=== PATIENT | male | born 1955 | race Caucasian/White ===

== ENCOUNTER 2016-07-17 19:18 | Observation (INO) | payer OTHER ==
[~2016-07-17] VITALS: Ht 172.7 cm; Wt 132.0 kg
--- NOTE | 2016-07-17 19:40 | NUR ---
PT TO ED C/O UPPER ABD PAIN THAT STARTED RUQ AND THAN MOVED ACROSS UPPER ABDOMEN SINCE SUNDAY NIGHT. DID HAVE SOME ETOH THAT EVENING, COULDN'T SLEEP.
--- NOTE | 2016-07-17 19:46 | ED GI/GU/ABDOMINAL COMPLAINT ---
History of Present Illness General Chief Complaint: Abdominal Pain/Flank Pain Stated Complaint: UPPER ABD PAIN Source: patient Exam Limitations: no limitations Vital Signs & Intake/Output Vital Signs & Intake/Output Vital Signs Date Time Temp Pulse Resp B/P Pulse O2 O2 Flow FiO2 Ox Delivery Rate 07/18 0004 98.8 73 18 198/94 98 Room Air 07/17 2320 100 Room Air 07/17 1937 98.6 69 20 189/82 96 Room Air ED Intake and Output 07/18 0000 07/17 1200 Intake Total Output Total Balance Patient 291 lb Weight Allergies Coded Allergies: No Known Drug Allergies (NKDA 07/17/16) Reconcile Medications No Known Home Medications Triage Note: PT TO ED C/O UPPER ABD PAIN THAT STARTED RUQ AND THAN MOVED ACROSS UPPER ABDOMEN SINCE SUNDAY NIGHT. DID HAVE SOME ETOH THAT EVENING, COULDN'T SLEEP. Triage Nurses Notes Reviewed? yes Onset: Gradual Duration: constant Timing: recent history Quality/Severity: mild Severity Numbers: 3 Location: epigastric, right upper quadrant Radiation: no radiation Activities at Onset: eating Prior Abdominal Problems: none HPI: Patient is a 61-year-old male with an unremarkable past Ajay who presents emergent thing that on Sunday morning at approximately 2 AM after eating a buffet dinner he had a gradual onset of epigastric pain and right upper quadrant pain. He states that symptoms have been mild in nature and persistent. Patient initially had indigestion and tried to cough the "gas bubble out" where he had 2 minimal episodes of nonbloody nonbilious emesis. Last bowel movement was that evening no blood no melena noted. Patient states that he has only been on clear liquids makes his symptoms worse. Denies any fevers, chills, chest pain and arm pain jaw pain cough shortness of breath or hemoptysis. (MANDY CAMARILLO) Past History Travel History Traveled to [place] past 21 day No Medical History Any Pertinent Medical History? see below for history Psychiatric: anxiety Surgical History Surgical History: non-contributory Psychosocial History What is your primary language Greenlandic Tobacco Use: Never used ETOH Use: occasional use Illicit Drug Use: denies illicit drug use Family History Hx Contributory? No (MANDY CAMARILLO) Review of Systems Review of Systems Constitutional: Reports: no symptoms. EENTM: Reports: no symptoms. Respiratory: Reports: no symptoms. Cardiovascular: Reports: no symptoms. GI: Reports: see HPI, abdominal pain. Genitourinary: Reports: no symptoms. Musculoskeletal: Reports: no symptoms. Skin: Reports: no symptoms. Neurological/Psychological: Reports: no symptoms. Hematologic/Endocrine: Reports: no symptoms. Immunologic/Allergic: Reports: no symptoms. All Other Systems: Reviewed and Negative (MANDY CAMARILLO) Physical Exam Physical Exam General Appearance: no apparent distress, obese Gastrointestinal: normal bowel sounds, soft, MILD RIGHT UPPER QUADRANT PAIN NO RIGHT LOWER QUADRANT. nO PERITONEAL SIGNS Comments: Well-developed well-nourished person in no acute distress HEENT: Normal EENT exam, Neck: Supple, no lymphadenopathy, normal range of motion without pain or tenderness Back: Nontender, no CVA tenderness. Cardiovascular: Regular rate and rhythms no murmurs rubs or gallops, normal JVP Respiratory: Chest nontender. No respiratory distress.breath sounds clear to auscultation bilaterally Extremity: No edema, no calf tenderness to palpation, normal and equal pulses. Neuro: Alert oriented x3, motor sensory normal, Skin: No appreciable rash on exposed skin, skin is warm and dry. Psych: Mood and affect is normal, memory and judgment is normal. Core Measures ACS in differential dx? No Severe Sepsis Present: No Septic Shock Present: No (MANDY CAMARILLO) Progress Differential Diagnosis: AAA, AMI, appendicitis, biliary colic, bowel obstruction , colon cancer, cholecystitis, diverticulitis, epididymitis, esophageal varices, gastritis, hepatitis, hernia, hemorrhoids, ischemic bowel, inflamm bowel dis, Sharri-Hawk tear, orchitis, pancreatitis, prostatitis, peptic ulcer, PUD/GERD, perforated viscous, pyelonephritis, SBO, STD, testicular torsion, ureterolithiasis, urinary retention, urethritis, UTI/pyelo Plan of Care: Orders Procedure Date/time Status Nothing by Mouth 07/18 B Active HEPATIC FUNCTION PANEL 07/18 0600 Active CBC WITHOUT DIFFERENTIAL 07/18 0600 Active BASIC ELECTROLYTES PLUS BUN&CR 07/[address] in observation 07/18 0006 Active Pathway - chart 07/17 2359 Active Pathway - chart 07/17 2354 Active Patient Data 07/17 2354 Active Code Status 07/17 2354 Active Add-on Test (ER Only) 07/17 225 Active TYPE & SCREEN (NOT X-MATCH) 07/18 2255 Complete Add-on Test (ER Only) 07/17 2026 Active PARTIAL THROMBOPLASTIN TIME 07/18 1943 Complete PROTHROMBIN TIME 07/18 1943 Complete DIRECT BILIRUBIN 07/18 1943 Complete URINALYSIS 07/18 1939 Complete LIPASE 07/18 1939 Complete COMPREHENSIVE METABOLIC PANEL 07/18 1939 Complete CBC WITHOUT DIFFERENTIAL 07/18 1939 Complete AMYLASE 07/18 1939 Complete VTE Mechanical Prophylaxis 07/17 UNK Active Vital Signs 07/17 UNK Active Intake & Output 07/17 UNK Active Activity/Ambulation 07/17 UNK Active Current Medications Sig/Kushal Start time Last Medication Dose Stop Time Status Admin Heparin Sodium 5,000 UNIT Q8 07/18 0600 UNVr (Porcine) Ampicillin Sodium/ 1,500 MG Q6 07/17 2359 AC Sulbactam Sodium (Unasyn) Sodium Chloride 100 ML (Normal Saline 0.9%) Acetaminophen 650 MG Q6P PRN 07/17 2345 AC (Tylenol) Morphine Sulfate 2 MG Q4P PRN 07/17 2345 AC (Morphine) Morphine Sulfate 4 MG Q4P PRN 07/17 2345 AC (Morphine) Ondansetron HCl 4 MG Q8P PRN 07/17 2345 AC (Zofran) Laboratory Tests 07/17/16 225: PT Cancelled, INR Cancelled, APTT Cancelled 07/17/161947: Urinalysis LIGHT H, Urine Color YEL, Urine Clarity CLEAR, Urine pH 6.0, Ur Specific [place] 1.010, Urine Protein NEG, Urine Ketones NEG, Urine Nitrite NEG, Urine Bilirubin NEG, Urine Urobilinogen 0.2, Ur Leukocyte Esterase NEG, Ur Microscopic SEDIMENT EXAMINED, Urine RBC RARE, Urine WBC 1-3 H, Ur Epithelial Cells FEW, Urine Bacteria FEW H, Urine Mucus FEW, Urine Hemoglobin TRACE-INTACT H, Urine Glucose NEG 07/17/161943: Anion Gap 12, Estimated GFR > 60, BUN/Creatinine Ratio 17.8, Glucose 112 H, Calcium 9.4, Total Bilirubin 2.4 H, Direct Bilirubin 0.4, AST 43, ALT 107 H, Alkaline Phosphatase 54, Total Protein 7.4, Albumin 4.2, Globulin 3.2, Albumin/ Globulin Ratio 1.3, Amylase < 30 L, Lipase 53, PT 13.4 H, INR 1.28 H, APTT 29 , CBC w Diff MAN DIFF ORDERED, RBC 5.26, MCV 88.6, MCH 29.6, RDW 14.0, MPV 9.0, Gran % 82.3 H, Lymphocytes % 10.4 L, Monocytes % 6.8, Eosinophils % 0.3, Basophils % 0.2, Absolute Granulocytes 13.3 H, Segmented Neutrophils 82 H, Absolute Lymphocytes 1.7, Lymphocytes 12 L, Monocytes 3, Absolute Monocytes 1.1 H, Eosinophils 3, Absolute Eosinophils 0, Absolute Basophils 0, Platelet Estimate VERIFIED BY SMEAR, Normocytic RBCs VERIFIED, Normochromic RBCs VERIFIED , PUBS MCHC 33.4, Fld Total RBCs Counted 100 Patient currently is resting comfortable in no apparent distress patient has no concerns of right lower quadrant pain denies any cardiovascular symptoms Patient had right upper quadrant ultrasound performed in which there is concerns of gallbladder thickening which I discussed patient with Dr. Arnold who will advise patient to be admitted. Papi PA was aware will consult the patient and which patient was nothing by mouth and Unasyn was administered (KING DOMINGUEZ,MANDY) Diagnostic Imaging: Viewed by Me: Ultrasound. Radiology Impression: SEE COMMENTS Initial ED EKG: none Comments: PATIENT: CATARINO CALZADA PRESENT AGE: 61 PATIENT ACCOUNT NO: [id number] : 56 LOCATION: [facility] ORDERING PHYSICIAN: MANDY DOMINGUEZ SERVICE DATE: 07/17/16 EXAM TYPE: US - US-LIMITED ABDOMEN EXAMINATION: ABDOMINAL ULTRASOUND LIMITED CLINICAL INFORMATION: Elevated bilirubin. Right upper quadrant pain. COMPARISON: None. TECHNIQUE: Real-time imaging of the right upper quadrant abdominal viscera. FINDINGS: PANCREAS: The visualized pancreatic head and body are normal in appearance. The remainder of the pancreas is obscured from visualization by the overlying bowel gas. LIVER: The liver is of normal size and diffuse increased echogenicity without focal lesions nor intrahepatic biliary ductal dilation. GALLBLADDER: There are calculi within the gallbladder lumen. There is mild gallbladder wall thickening measuring 4 mm. There is no pericholecystic fluid. COMMON BILE DUCT: Normal in caliber measuring 0.4 cm in diameter. RIGHT KIDNEY: Normal. No hydronephrosis. No renal calculi or focal parenchymal lesions. The kidney measures 14.9 cm in maximum dimension. FREE FLUID: None. IMPRESSION: Liver of diffuse increased echogenicity without focal lesions. The appearance is nonspecific, but consistent with fatty infiltration. Cholelithiasis with mild gallbladder wall thickening without pericholecystic fluid. Pain is not elicited by the patient during the examination. This is unlikely to correspond to cholecystitis, though close clinical correlation is warranted. DICTATED BY: KD ROLLINS MD DATE/TIME DICTATED:07/17/162227 (MANDY CAMARILLO) Departure Departure Disposition: STILL A PATIENT Condition: Guarded Clinical Impression Primary Impression: Cholecystitis Secondary Impressions: Gall stone Departure Forms: Customer Survey General Discharge Information Prescriptions: Current Visit Scripts No Known Home Medications Observation Note Spoke With: KEVIN ARNODL MD Physician Advisor Notified: BRENDON RAMIREZ MD Place Patient In: Non-ED OBS Care Area Rationale for Observation: My rational for observation is as follows [discussed patient with Dr. Arnold who will admit patient under surgery observation for concerns of cholecystitis. Patient requires repeat labs, possible repeat imaging and surgery consultation for concerns of acute cholecystitis and cholelithiasis. Outpatient treatment at this time due to symptoms of right upper quadrant pain and leukocytosis and gallbladder thickening and cholelithiasis would be medically harmful]. (MANDY CAMARILLO) PA/AERIAL PLANTING AND CULTIVATION MANAGER Co-Sign Statement Statement: ED Attending supervision documentation- [X] I saw and evaluated the patient. I have also reviewed all the pertinent lab results and diagnostic results. I agree with the findings and the plan of care as documented in the PA's/AERIAL PLANTING AND CULTIVATION MANAGER's documentation. [X] I have reviewed the ED Record and agree with the PA's/AERIAL PLANTING AND CULTIVATION MANAGER's documentation. [] Additions or exceptions (if any) to the PAs/AERIAL PLANTING AND CULTIVATION MANAGER's note and plan are summarized below: [] (BRENDON RAMIREZ MD)
[2016-07-17 19:52] LABS: ABSOLUTE BASOPHIL COUNT 0 /CUMM (0.0-0.2); ABSOLUTE EOSINOPHIL COUNT 0 /CUMM (0.0-0.7); ABSOLUTE GRANULOCYTE CT 13.3 /CUMM (1.4-6.5); ABSOLUTE LYMPH COUNT 1.7 /CUMM (1.2-3.4); ABSOLUTE MONOCYTE COUNT 1.1 /CUMM (0.10-0.60); BASOPHIL % 0.2 % (0.0-2.0); EOSINOPHIL % 0.3 % (0-5); GRANULOCYTE % 82.3 % (42.2-75.2); HEMATOCRIT 46.6 % (42-52); MEAN CORPUSCULAR HGB 29.6 PG (27.0-31.0); MEAN CORPUSCULAR HGB CONC 33.4 G/DL (33.0-37.0); MEAN CORPUSCULAR VOLUME 88.6 FL (80.0-94.0); PLATELET COUNT 247 /CUMM (130-400); RED BLOOD CELL CT 5.26 /CUMM (4.70-6.10); WHITE BLOOD CELL COUNT 16.2 /CUMM (4.8-10.8)
--- NOTE | 2016-07-17 19:54 | NUR ---
ALBERTO Maguire IN FOR ISAIAH
--- NOTE | 2016-07-17 21:15 | NUR ---
US AT BEDSIDE.
--- NOTE | 2016-07-17 22:43 | ULTRASOUND REPORT ---
EXAMINATION: ABDOMINAL ULTRASOUND LIMITED CLINICAL INFORMATION: Elevated bilirubin. Right upper quadrant pain. COMPARISON: None. TECHNIQUE: Real-time imaging of the right upper quadrant abdominal viscera. FINDINGS: PANCREAS: The visualized pancreatic head and body are normal in appearance. The remainder of the pancreas is obscured from visualization by the overlying bowel gas. LIVER: The liver is of normal size and diffuse increased echogenicity without focal lesions nor intrahepatic biliary ductal dilation. GALLBLADDER: There are calculi within the gallbladder lumen. There is mild gallbladder wall thickening measuring 4 mm. There is no pericholecystic fluid. COMMON BILE DUCT: Normal in caliber measuring 0.4 cm in diameter. RIGHT KIDNEY: Normal. No hydronephrosis. No renal calculi or focal parenchymal lesions. The kidney measures 14.9 cm in maximum dimension. FREE FLUID: None. IMPRESSION: Liver of diffuse increased echogenicity without focal lesions. The appearance is nonspecific, but consistent with fatty infiltration. Cholelithiasis with mild gallbladder wall thickening without pericholecystic fluid. Pain is not elicited by the patient during the examination. This is unlikely to correspond to cholecystitis, though close clinical correlation is warranted.
--- NOTE | 2016-07-17 23:10 | NUR ---
PINK/BLUE TOP DRAWN BY THIS RN AND SENT TO LAB
--- NOTE | 2016-07-17 23:13 | NUR ---
IV ACCESS ESTABLISHED BY THIS RN, LAC #[id number]. SURGICAL PA IN FOR EVAL
--- NOTE | 2016-07-17 23:19 | NUR ---
PT MEDICATED WITH 1,500MG UNASYN PER EMAR INFUSING AT 200ML/HR.
[2016-07-17 23:23] LABS: PT 13.4 SEC (9.4-12.5); PTT 29 SEC (25-37)
--- NOTE | 2016-07-18 00:04 | NUR ---
D5-NS INFUSING AT 125ML/HR.
--- NOTE | 2016-07-18 00:09 | NUR ---
PT INFORMED HE IS NPO AND TO NOT EAT OR DRINK.
--- NOTE | 2016-07-18 00:24 | Admission Core Measures ---
Admission Lab Results I reviewed the following labs: Laboratory Tests 07/17 Coagulation PT Cancelled INR Cancelled APTT Cancelled Urines Urinalysis LIGHT H Urine Color (YEL,AMB,STR) YEL Urine Clarity (CLEAR) CLEAR Urine pH (5.0 - 8.0) 6.0 Ur Specific [place] (1.001 - 1.035) 1.010 Urine Protein (NEG,<30 MG/DL) NEG Urine Ketones (NEG) NEG Urine Nitrite (NEG) NEG Urine Bilirubin (NEG) NEG Urine Urobilinogen (0.1 - 1.0 EU/dl) 0.2 Ur Leukocyte Esterase (NEG) NEG Ur Microscopic SEDIMENT EXAMINED Urine RBC (0 - 5 /HPF) RARE Urine WBC (0 - 2 /HPF) 1-3 H Ur Epithelial Cells (NONE,FEW) FEW Urine Bacteria (NEG/NONE) FEW H Urine Mucus (FEW,NONE) FEW Urine Hemoglobin (NEG) TRACE-INTACT H Urine Glucose (N MG/DL) NEG 07/18 1943 Chemistry Sodium (137 - 145 mmol/L) 137 Potassium (3.5 - 5.1 mmol/L) 4.0 Chloride (98 - 107 mmol/L) 96 L Carbon Dioxide (22 - 30 mmol/L) 29 Anion Gap (5 - 16) 12 BUN (9 - 20 mg/dL) 16 Creatinine (0.7 - 1.2 mg/dL) 0.9 Estimated GFR (>60 ml/min) > 60 BUN/Creatinine Ratio (7 - 25 %) 17.8 Glucose (65 - 99 mg/dL) 112 H Calcium (8.4 - 10.2 mg/dL) 9.4 Total Bilirubin (0.2 - 1.3 mg/dL) 2.4 H Direct Bilirubin (< 0.4 mg/dL) 0.4 AST (17 - 59 U/L) 43 ALT (21 - 72 U/L) 107 H Alkaline Phosphatase (< 127 U/L) 54 Total Protein (6.3 - 8.2 g/dL) 7.4 Albumin (3.5 - 5.0 g/dL) 4.2 Globulin (1.9 - 4.2 gm/dL) 3.2 Albumin/Globulin Ratio (1.1 - 2.2 %) 1.3 Amylase (30 - 110 U/L) < 30 L Lipase (23 - 300 U/L) 53 Coagulation PT (9.4 - 12.5 SEC) 13.4 H INR (0.90 - 1.17) 1.28 H APTT (25 - 37 SEC) 29 Hematology CBC w Diff MAN DIFF ORDERED WBC (4.8 - 10.8 /CUMM) 16.2 H RBC (4.70 - 6.10 /CUMM) 5.26 Hgb (14.0 - 18.0 G/DL) 15.6 Hct (42 - 52 %) 46.6 MCV (80.0 - 94.0 FL) 88.6 MCH (27.0 - 31.0 PG) 29.6 RDW (11.5 - 14.5 %) 14.0 Plt Count (130 - 400 /CUMM) 247 MPV (7.4 - 10.4 FL) 9.0 Gran % (42.2 - 75.2 %) 82.3 H Lymphocytes % (20.5 - 51.1 %) 10.4 L Monocytes % (1.7 - 9.3 %) 6.8 Eosinophils % (0 - 5 %) 0.3 Basophils % (0.0 - 2.0 %) 0.2 Absolute Granulocytes (1.4 - 6.5 /CUMM) 13.3 H Segmented Neutrophils (42.2 - 75.2 %) 82 H Absolute Lymphocytes (1.2 - 3.4 /CUMM) 1.7 Lymphocytes (20.5 - 51.1 %) 12 L Monocytes (1.7 - 9.3 %) 3 Absolute Monocytes (0.10 - 0.60 /CUMM) 1.1 H Eosinophils (0 - 5.0 %) 3 Absolute Eosinophils (0.0 - 0.7 /CUMM) 0 Absolute Basophils (0.0 - 0.2 /CUMM) 0 Platelet Estimate (ADEQUATE) VERIFIED BY SMEAR Normocytic RBCs VERIFIED Normochromic RBCs VERIFIED PUBS MCHC (33.0 - 37.0 G/DL) 33.4 Other Body Source Fld Total RBCs Counted (%) 100 Admission Meds I reviewed the following Meds: Current Medications Sig/Kushal Start time Last Medication Dose Stop Time Status Admin Acetaminophen 650 MG Q6P PRN 07/17 1055 AC (Tylenol) Ampicillin Sodium/ 1,500 MG Q6 07/17 5459 AC Sulbactam Sodium (Unasyn) Sodium Chloride 100 ML (Normal Saline 0.9%) Heparin Sodium 5,000 UNIT Q8 07/18 0600 UNVr (Porcine) Morphine Sulfate 2 MG Q4P PRN 07/17 2344 AC (Morphine) Morphine Sulfate 4 MG Q4P PRN 07/17 2344 AC (Morphine) Ondansetron HCl 4 MG Q8P PRN 07/17 2344 AC (Zofran) Acute Coronary Syndrome Inclusion Criteria ACS Diagnosis No Inpatient Core Measures LDL Reminder: If No, please order W/I first 24hr of stay Congestive Heart Failure Inclusion Criteria CHF Diagnosis No Cerebrovascular accident Inclusion Criteria CVA/TIA Diagnosis No Inpatient Core Measures Bedside Swallow Eval Reminder: If BSE failed, place ST order Antithrombotic Reminder: Order Antithrombotic Medication by end of day 2 Antithrombotic Reminder: Document Reason Antithrombotic Not ordered by end of day 2 AFIB/Flutter Reminder: If Present, add to problem list AFIB/Flutter Reminder: Order Anticoag Medication for pts with AFIB/Flutter Atherosclerosis Reminder: If Present, add to problem list LDL Reminder: If No, please order W/I first 24hr of stay PT Order Reminder: If No, please order Venous thromboembolism Inpatient Core Measures VTE Risk Factors: Acute medical illness, Age > 40, Obesity No [facility] VTE prophylaxis d/t No contraindications No VTE Pharm Prophylaxis d/t No contraindications Inclusion Criteria - Per Current guidelines, there needs to be overlap - treatment for the first 5 days of Warfarin therapy. - Parenteral Anticoagulation (IV or SC) needs to be - given along with Warfarin therapy. VTE Diagnosis No VTE Type NONE VTE Confirmed by (Test) NONE Problem List As ranked by this Provider includes Assessment & Plan 1. Cholecystitis with cholelithiasis HOME MEDS Home Med List No Known Home Medications
--- NOTE | 2016-07-18 00:24 | History & Physical ---
ROSEANN HOLMAN 07/18/16 0002: General Information and HPI MD Statement: I have seen and personally examined CATARINO CALZADA and documented this H&P. The patient is a 61 year old M who presented with a patient stated chief complaint of []. History of Present Illness: 61yoM presents to ED complaining of Right sided abdominal pain. Ate large dinner 2 nights ago, and has had pain since, as well as nausea and vomiting. He thought he had "food poisioning" as first. He has never had this pain in the past. He describes pain as crampy, and feels like a gas bubble. Pain is in his epigastric region and RUQ. Took some asa at home with no relief. Reports decreased appetite, last meal yesterday. [place] so sick that he did not attend his family's [place] gathering. Denies changes in urinary habits. Last BM 2 days ago. Possible subjective fever, did not take temp at home. Denies sob or cp. Of note, has no medical diagnoses but does not have a PCP and has not seen a medical provider for 15 years. 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 Exam & Diagnostic Data Last 24 Hrs of Vital Signs/I&O Vital Signs Date Time Temp Pulse Resp B/P Pulse O2 O2 Flow FiO2 Ox Delivery Rate 07/18 0004 98.8 73 18 198/94 98 Room Air 07/17 2320 100 Room Air 07/17 1937 98.6 69 20 189/82 96 Room Air Intake & Output 07/18 0800 07/18 0000 07/17 1600 Intake Total Output Total Balance Patient 291 lb Weight Physical Exam General Appearance Alert, Cooperative, No Acute Distress Cardiovascular Regular Rate, Normal S1, Normal S2 Lungs Clear to Auscultation, Normal Air Movement Abdomen obese, nondistended, no lesions, TTP RUQ, no rebound or guarding, +bs Extremities No Edema, Normal Pulses, No Tenderness/Swelling Last 24 Hrs of Labs/Sudheer: Laboratory Tests 07/17/162255: PT Cancelled, INR Cancelled, APTT Cancelled 07/17/161947: Urinalysis LIGHT H, Urine Color YEL, Urine Clarity CLEAR, Urine pH 6.0, Ur Specific [place] 1.010, Urine Protein NEG, Urine Ketones NEG, Urine Nitrite NEG, Urine Bilirubin NEG, Urine Urobilinogen 0.2, Ur Leukocyte Esterase NEG, Ur Microscopic SEDIMENT EXAMINED, Urine RBC RARE, Urine WBC 1-3 H, Ur Epithelial Cells FEW, Urine Bacteria FEW H, Urine Mucus FEW, Urine Hemoglobin TRACE-INTACT H, Urine Glucose NEG 07/17/161943: Anion Gap 12, Estimated GFR > 60, BUN/Creatinine Ratio 17.8, Glucose 112 H, Calcium 9.4, Total Bilirubin 2.4 H, Direct Bilirubin 0.4, AST 43, ALT 107 H, Alkaline Phosphatase 54, Total Protein 7.4, Albumin 4.2, Globulin 3.2, Albumin/ Globulin Ratio 1.3, Amylase < 30 L, Lipase 53, PT 13.4 H, INR 1.28 H, APTT 29 , CBC w Diff MAN DIFF ORDERED, RBC 5.26, MCV 88.6, MCH 29.6, RDW 14.0, MPV 9.0, Gran % 82.3 H, Lymphocytes % 10.4 L, Monocytes % 6.8, Eosinophils % 0.3, Basophils % 0.2, Absolute Granulocytes 13.3 H, Segmented Neutrophils 82 H, Absolute Lymphocytes 1.7, Lymphocytes 12 L, Monocytes 3, Absolute Monocytes 1.1 H, Eosinophils 3, Absolute Eosinophils 0, Absolute Basophils 0, Platelet Estimate VERIFIED BY SMEAR, Normocytic RBCs VERIFIED, Normochromic RBCs VERIFIED , PUBS MCHC 33.4, Fld Total RBCs Counted 100 Diagnostic Data Other Results US abd: +gallstones, +gb wall thickening 4mm, no pericholecystic fluid, CBD 0.4cm, no pain on us exam Assessment/Plan Assessment: 61yoM cholecystitis, possible choledocholithiasis, WBC 16 and Tb 2.4, otherwise stable. Admit to surgery, NPO, IVF, IV abx, DVT ppx, trend labs in am, likely cholecystectomy, possible GI involvement if LFTs remain elevated, d/w Dr. Arnold who will see in am. Pt full code and in agreement with plan. As Ranked By This Provider Problem List: 1. Cholecystitis with cholelithiasis Core Measures/Miscellaneous Acute Coronary Syndrome ACS Diagnosis: No Cerebrovascular Accident CVA/TIA Diagnosis: No Congestive Heart Failure CHF Diagnosis: No Venous Thromboembolism VTE Risk Factors: Acute medical illness, Age > 40, Obesity No Mech VTE prophylaxis d/t: No contraindications No VTE Pharm Prophylaxis d/t: No contraindications VTE Diagnosis: No VTE Type: NONE VTE Confirmed by (Test): NONE Severe Sepsis Severe Sepsis Present: No Septic Shock Septic Shock Present: No Miscellaneous Documentation Attending Case Discussed With: Dr. Arnold Primary Care Physician: PATIENT HAS NO PRIMARY CARE DR Patient sees these Specialists none Level of Patient Care: General Surgical KEVIN ARNOLD MD 07/18/16 1255: Attending MD Review Statement Attending Statement Attending MD Statement: examined this patient, discuss w/resident/PA/COMBUSTION ANALYST, reviewed images Attending Assessment/Plan: Patient is 61yo male with s/s consistent with acute cholecystitis. No biliary ductal dilatation to explain mild elevation in bilirubin. 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 Plan for IV abx and laparoscopic cholecystectomy when OR available. He has untreated hypertension for which medical consultation will be obtained.
--- NOTE | 2016-07-18 01:00 | NUR ---
PT'S RM ASSIGNMENT 215 BED 1
--- NOTE | 2016-07-18 01:46 | NUR ---
REPORT GIVEN TO RN ON MED SURG FLOOR.
--- NOTE | 2016-07-18 02:25 | NUR ---
PT ARRIVED TO FLOOR VIA STRETCHER FROM ED. BP 182/100, HR 60, TEMP 97.8, RR 22, 02 96% ON RA, SURGICAL PA MADE AWARE OF HIGH BP. PAIN 2/10 PER PT AND STATES PAIN IS MUCH BETTER COMPARED TO WHEN HE FIRST CAME IN. PT STATES HE HAD SOME VOMITING ON SUNDAY NIGHT BUT DENIES NAUSEA AND DIARRHEA. +BS IN ALL 4 QUADS, NPO FOR SURGERY TOMORROW MORNING. SKIN INTACT, NO BREAKDOWN NOTED. PT HX ANXIETY DENIES HX OF HTN.IV FLUIDS STARTED @ 125 ML/HR. PT OFFERS NO OTHER COMPLAINTS. PT SHOWN HOW TO USE CALL LIGHT SYSTEM. PT BROUGHT 1 BAG OF BELONGINGS IN ROOM, PT ARRIVED IN STREET CLOTHES AND CHANGED INTO [employer] COAT. PT SETTLED IN ROOM. WILL CONTINUE TO MONITOR.
[2016-07-18 02:34] VITALS: BP 182/100
[2016-07-18 07:07] VITALS: BP 176/75
[2016-07-18 08:39] LABS: ABSOLUTE BASOPHIL COUNT 0 /CUMM (0.0-0.2); ABSOLUTE EOSINOPHIL COUNT 0.1 /CUMM (0.0-0.7); ABSOLUTE GRANULOCYTE CT 7.7 /CUMM (1.4-6.5); ABSOLUTE LYMPH COUNT 1.6 /CUMM (1.2-3.4); ABSOLUTE MONOCYTE COUNT 1.1 /CUMM (0.10-0.60); BASOPHIL % 0.3 % (0.0-2.0); EOSINOPHIL % 0.9 % (0-5); GRANULOCYTE % 73.1 % (42.2-75.2); HEMATOCRIT 43.5 % (42-52); MEAN CORPUSCULAR HGB 29.9 PG (27.0-31.0); MEAN CORPUSCULAR HGB CONC 33.3 G/DL (33.0-37.0); MEAN CORPUSCULAR VOLUME 89.7 FL (80.0-94.0); MEAN PLATELET VOLUME 9.4 FL (7.4-10.4); PLATELET COUNT 191 /CUMM (130-400); RED BLOOD CELL CT 4.85 /CUMM (4.70-6.10); WHITE BLOOD CELL COUNT 10.6 /CUMM (4.8-10.8)
[2016-07-18 11:30] VITALS: BP 180/102
--- NOTE | 2016-07-18 11:36 | Cons- Medical ---
DARRIN OLIVER,ADALID 07/18/16 1135: General Information and HPI Consulting Request Date of Consult: 07/18/16 Requested By: CATALINA OLIVER,KEVIN Osorio Reason for Consult: HYPERTENSION Source of Information: patient Exam Limitations: no limitations History of Present Illness: 61 YO M w/o any significant past medical history, not on any home medications. Presents to [facility] after having a large dinner buffet at a friend's birthday libertarian in [place]. On the way home in the car he developed abdominal pain along with nausea and vomiting. Reports the pain was crampy in nature initially 8/10 located on his right side radiating to his stomach. . Reports taking [id number] medication with no relief in pain. He has been managed by surgical team for acute cholecystitis. He is scheduled for laparoscopic cholecystectomy today. While hospitalized his blood pressures have been high, his pain appears to be well controlled. He has not seen a physician in more than 15 years and denies a history of high blood pressure. Denies chest pain, palpitations, lightheadness, shortness of breath. He has been walking recently as his car broke down. Reports walking up hills w/o any symptoms. Allergies/Medications Allergies: Coded Allergies: No Known Drug Allergies (NKDA 07/17/16) Home Med List: No Known Home Medications Current Medications: Current Medications Sig/Kushal Start time Last Medication Dose Route Stop Time Status Admin Acetaminophen 650 MG Q6P PRN 07/17 2345 AC PO Amlodipine Besylate 5 MG ONCE ONE 07/18 1145 DC 07/18 PO 07/18 1146 1150 Amlodipine Besylate 5 MG DAILY 07/18 0300 AC 07/18 PO 0337 Ampicillin Sodium/ 1,500 MG Q6 07/17 2359 AC 07/18 Sulbactam Sodium IV 1153 Sodium Chloride 100 ML Ampicillin Sodium/ 0 .STK-MED ONE 07/17 2318 DC Sulbactam Sodium .ROUTE Ampicillin Sodium/ 1,500 MG ONCE ONE 07/17 2300 DC 07/17 Sulbactam Sodium IV 07/17 2329 2321 Sodium Chloride 100 ML Dextrose/Sodium 1,000 ML .Q8H 07/17 2345 AC 07/18 Chloride IV 0857 Heparin Sodium 5,000 UNIT Q8 07/18 0600 AC 07/18 (Porcine) SC 0602 Morphine Sulfate 2 MG Q4P PRN 07/17 2344 IV Morphine Sulfate 4 MG Q4P PRN 07/17 2344 AC IV Ondansetron HCl 4 MG Q8P PRN 07/17 2344 AC IV Review of Systems Review of Systems Constitutional: Denies: chills, fever, malaise, weakness. Cardiovascular: Denies: chest pain, palpitations, peripheral edema, syncope. Respiratory: Denies: cough, short of breath, sputum production, wheezing. GI: Reports: abdominal pain, nausea, vomiting. Denies: constipation, diarrhea, melena, bloody stool. Genitourinary: Reports: no symptoms. Musculoskeletal: Reports: no symptoms. Skin: Reports: no symptoms. Neurological/Psychological: Reports: no symptoms. All Other Systems: Reviewed and Negative Past History Travel History Traveled to [place] past 21 day No Medical History Blood Transfusion Hx: No Psychiatric: anxiety Surgical History Surgical History: none Family History Relations & Conditions If Any: BROTHER (Hypertension). Psychosocial History Where Do You Live? Home Who Do You Live With? self Services at Home: None Primary Language: Panamanian Smoking Status: Never Smoked ETOH Use: occasional use Illicit Drug Use: denies illicit drug use Functional Ability ADLs Independent: dressing, eating, toileting, bathing. Ambulation: independent IADLs Independent: shopping, housework, finances, food prep, telephone, transportation , medication admin. 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 Exam & Diagnostic Data Last 24 Hrs of Vital Signs/I&O Vital Signs Date Time Temp Pulse Resp B/P Pulse O2 O2 Flow FiO2 Ox Delivery Rate 07/18 1150 64 180/102 07/18 1130 64 180/102 07/18 0707 99.0 61 22 176/75 97 07/18 0337 182/100 07/18 0234 97.8 60 22 182/100 96 Room Air 07/18 0118 185/87 07/18 0004 98.8 73 18 198/94 98 Room Air 07/17 2320 100 Room Air 07/17 1937 98.6 69 20 189/82 96 Room Air Intake & Output 07/18 1600 07/18 0800 07/18 0000 Intake Total 500 Output Total 650 Balance -150 Intake, IV 500 Intake, Oral 0 Output, Urine 650 Patient 291 lb 291 lb Weight Physical Exam General Appearance: well developed/nourished, no apparent distress, alert, awake , mild distress, obese Head: atraumatic, normal appearance Eyes: Bilateral: normal appearance, PERRL, EOMI. Neck: normal inspection, supple Respiratory: normal breath sounds, quiet respiration, lungs clear Cardiovascular: regular rate/rhythm, normal peripheral pulses Peripheral Pulses: 2+ radial (R) Gastrointestinal: normal bowel sounds, soft, tenderness Back: normal inspection Extremities: no edema Last 24 Hrs of Labs/Sudheer: Laboratory Tests 07/18/16 0710: Anion Gap 11, Estimated GFR > 60, BUN/Creatinine Ratio 17.5, Total Bilirubin 1.9 H, Direct Bilirubin 0.3, AST 28, ALT 87 H, Alkaline Phosphatase 44, Total Protein 6.3, Albumin 3.4 L, CBC w Diff NO MAN DIFF REQ, RBC 4.85, MCV 89.7, MCH 29.9, RDW 14.0, MPV 9.4, Gran % 73.1, Lymphocytes % 14.9 L, Monocytes % 10.8 H , Eosinophils % 0.9, Basophils % 0.3, Absolute Granulocytes 7.7 H, Absolute Lymphocytes 1.6, Absolute Monocytes 1.1 H, Absolute Eosinophils 0.1, Absolute Basophils 0, PUBS MCHC 33.3 07/17/166: PT Cancelled, INR Cancelled, APTT Cancelled 07/17/161947: Urinalysis LIGHT H, Urine Color YEL, Urine Clarity CLEAR, Urine pH 6.0, Ur Specific [place] 1.010, Urine Protein NEG, Urine Ketones NEG, Urine Nitrite NEG, Urine Bilirubin NEG, Urine Urobilinogen 0.2, Ur Leukocyte Esterase NEG, Ur Microscopic SEDIMENT EXAMINED, Urine RBC RARE, Urine WBC 1-3 H, Ur Epithelial Cells FEW, Urine Bacteria FEW H, Urine Mucus FEW, Urine Hemoglobin TRACE-INTACT H, Urine Glucose NEG 07/17/161943: Anion Gap 12, Estimated GFR > 60, BUN/Creatinine Ratio 17.8, Glucose 112 H, Calcium 9.4, Total Bilirubin 2.4 H, Direct Bilirubin 0.4, AST 43, ALT 107 H, Alkaline Phosphatase 54, Total Protein 7.4, Albumin 4.2, Globulin 3.2, Albumin/ Globulin Ratio 1.3, Amylase < 30 L, Lipase 53, PT 13.4 H, INR 1.28 H, APTT 29 , CBC w Diff MAN DIFF ORDERED, RBC 5.26, MCV 88.6, MCH 29.6, RDW 14.0, MPV 9.0, Gran % 82.3 H, Lymphocytes % 10.4 L, Monocytes % 6.8, Eosinophils % 0.3, Basophils % 0.2, Absolute Granulocytes 13.3 H, Segmented Neutrophils 82 H, Absolute Lymphocytes 1.7, Lymphocytes 12 L, Monocytes 3, Absolute Monocytes 1.1 H, Eosinophils 3, Absolute Eosinophils 0, Absolute Basophils 0, Platelet Estimate VERIFIED BY SMEAR, Normocytic RBCs VERIFIED, Normochromic RBCs VERIFIED , PUBS MCHC 33.4, Fld Total RBCs Counted 100 Diagnostic Data Other Results Liver of diffuse increased echogenicity without focal lesions. The appearance is nonspecific, but consistent with fatty infiltration. Cholelithiasis with mild gallbladder wall thickening without pericholecystic fluid. Pain is not elicited by the patient during the examination. This is unlikely to correspond to cholecystitis, though close clinical correlation is warranted. Assessment/Plan Assessment/Plan 61 YO M w/o any significant past medical history, not on any home medications. Presented to [facility] after having a large dinner buffet at a friend's birthday libertarian in [place]. He developed abdominal pain along with nausea and vomiting. Reports the pain was crampy in nature initially 8/10 located on his right side radiating to his stomach. He has been managed by surgical team for acute cholecystitis. He is scheduled for laparoscopic cholecystectomy. Throughout his hospitalization his BP has been elevated. Elevated Blood Pressure His blood pressure has been elevated throughout hospitalization. Initially this was thought to be due to abdominal pain, liver his pain has subsided and his blood pressure still remains elevated. He has not seen a physician in 15 years. He may have a diagnosis of hypertension though his not aware. Reports not checking BP at home. He has been started on Norvasc 5mg overnight with modest improvement in Blood Pressures. Repeat BP the morning 180/102, pulse 64. He has been given another dose of Norvasc 5mg. Continue to monitor Blood Pressure, if BP remains elevated may use hydralazine PRN. Will get baseline EKG to check for left ventricular hypertrophy. Recommend ECHOCARDIOGRAM which can be done as outpatient. Problem List: 1. Hypertension 2. Cholecystitis Consult Acknowledgment - Thank you for your consult request. SANDRA OLIVER,ADRIANA 07/18/16 8023: Assessment/Plan Consult Acknowledgment - Thank you for your consult request. Attending MD Review Statement Attending Statement Attending MD Statement: examined this patient, discuss w/resident/PA/PRINTING MACHINE MECHANIC, agreed w/resident/PA/PRINTING MACHINE MECHANIC, reviewed EMR data (avail), reviewed images, amended to note Attending Assessment/Plan: 61-year-old male with no known past medical history who was admitted under surgical service with abdominal pain, nausea and vomiting likely secondary to acute cholecystitis. Medical consult was obtained for hypertension. Patient has not seen any doctor in over 15 years. He claims that he had a stress test done 15 years ago in [place] and was told that it was normal. He claims that he has sold his car and now walks back and forth to his house. He has to climb up hills and he does not get any shortness of breath or chest pain. He does feel achy but he's able to do that without any chest pain. Currently his abdominal pain is under control with the medications. His blood pressure is still running on the higher side. On exam he does have right upper quadrant tenderness, his bowel sounds are positive. I reviewed his labs. Assessment and recommendations: 61-year-old male with the abdominal pain, nausea and vomiting likely secondary to acute cholecystitis and possible new diagnosis of hypertension. Recommend keeping him on Norvasc and increasing the dose to 10 mg. If blood pressure continues to remain high, would add the second agent which will likely be an ARB. Check an EKG and please follow-up on the EKG. Patient to go to operating room later today. Antibiotics per surgery. DVT px: Heparin subcutaneous. Recommend getting echocardiogram as an outpatient. He should establish care with a primary care doctor as an outpatient.
[2016-07-18 13:00] VITALS: BP 176/72
[2016-07-18 14:29] VITALS: BP 176/72
--- NOTE | 2016-07-18 17:27 | NUR ---
PT LEFT FLOOR WITH DISTRIBUTION FOR OR, CHART SENT, BP 176/74(MD CORDOBA AWARE. [facility] ADMINISTERED). WILL AWAIT RETURN TO FLOOR.
--- NOTE | 2016-07-18 19:09 | Operative Report ---
Operative/Inv Procedure Report Surgery Date: 07/18/16 Name of Procedure: Laparoscopic cholecystectomy Pre-Operative Diagnosis: Acute cholecystitis Post-Operative Diagnosis: Same Estimated Blood Loss: less than 50ml Surgeon/Supervisor Last Model Department: CATALINA OLIVER,KEVIN Osorio/[facility] Anesthesia: general endotracheal tube Drains: None Specimens: Gallbladder Operative Indication: See H&P Operative/Procedure Note Note: After informed consent patient is brought to the operating room and laid supine. General anesthesia was obtained and her abdomen was prepped and draped. The skin above the umbilicus infiltrated with local anesthesia and a curvilinear incision made sharply. We came down through the subcutaneous tissues bluntly and grasped the fascia with Linwood's. A fasciotomy was created sharply and stay sutures placed. The peritoneum was entered sharply and a blunt Tuttle port was placed. Pneumoperitoneum was achieved. 3, 5 mm ports were placed in the epigastrium and right upper quadrant after local anesthesia was instilled and under direct vision the camera. She's placed in reverse Trendelenburg and rotated towards the left. The gallbladder is identified. It was markedly inflamed and edematous. It was difficult to grasp, therefore it was puncture aspirated to drain the bile out of it. It was grasped at the dome and retracted towards the head. Infundibulum was then grasped. Adhesions to the undersurface were taken down with blunt and cautery dissection. We dissected both sides the triangle Calot peritoneal tissue with cautery. There is significant edema and oozing from inflammation. There was a node overlying the triangle which was cauterized superiorly and then reflected down. The artery was medial and its normal anatomic position. It was cauterized medially to allow it to be mobilized away from the duct. [place] was cleared of areolar tissue with cautery. The arteries and duct were doubly ligated with clips. Due to the thickened nature of the cystic duct, I had to use 10 mm heme a lock clips to ligate the duct. The epigastric port site was upsized to a 12 mm port to do so. Gallbladder is removed from the fossa electrocautery. It was placed in Endo Catch bag and cinched up. Right upper quadrant was and suction irrigated normal saline. Hemostasis achieved with cautery. The ports were then removed and the gallbladder delivered and passed off the field. The fascia was incised further to allow delivery of the gallbladder. The fascia was closed with 0 Vicryl suture in a running fashion. Skin incisions closed with 4-0 Vicryl. Steri- Strips and sterile dressing applied. Sponge and needle counts are correct. Findings: Severe acute cholecystitis
[2016-07-18 21:00] VITALS: BP 138/77
--- NOTE | 2016-07-18 22:41 | PN- General Surgery ---
Subjective Subjective: Postop check: Patient comfortable, lying in bed, tolerating clears. No significant abdominal pain no nausea no vomiting. Objective Vital Signs and I&Os Vital Signs Date Time Temp Pulse Resp B/P Pulse O2 O2 Flow FiO2 Ox Delivery Rate 07/18 1429 98.3 61 20 176/72 98 Room Air 07/18 1300 176/72 07/18 1150 64 180/102 07/18 1130 64 180/102 07/18 0707 99.0 61 22 176/75 97 07/18 0337 182/100 07/18 0234 97.8 60 22 182/100 96 Room Air 07/18 0118 185/87 07/18 0004 98.8 73 18 198/94 98 Room Air 07/17 2320 100 Room Air Intake & Output 07/18 1600 07/18 0800 07/18 0000 07/17 1600 07/17 0800 07/17 0000 Intake Total 1030 500 Output Total 900 650 Balance 130 -150 Intake, IV 1000 500 Intake, Oral 30 0 Output, Urine 900 650 Patient 291 lb 291 lb Weight Physical Exam: Well-developed well-nourished no apparent distress. HEENT: Atraumatic, extraocular motion intact Neck: Supple, no lymphadenopathy Respiratory: No respiratory distress Abdomen: Band-Aids clean dry and intact. Obese, soft. Bowel sounds normal. abdomen is minimally tender in the right upper quadrant. eXtremities: No edema, no calf pain Neuro: Alert and oriented x3 Psych: Mood affect normal, normal memory normal judgment. Skin: Warm and dry, no rash on exposed skin Results Last 48 Hours of Labs: Laboratory Tests 07/18 07/17 0710 2256 Chemistry Sodium (137 - 145 mmol/L) 141 Potassium (3.5 - 5.1 mmol/L) 3.6 Chloride (98 - 107 mmol/L) 99 Carbon Dioxide (22 - 30 mmol/L) 30 Anion Gap (5 - 16) 11 BUN (9 - 20 mg/dL) 14 Creatinine (0.7 - 1.2 mg/dL) 0.8 Estimated GFR (>60 ml/min) > 60 BUN/Creatinine Ratio (7 - 25 %) 17.5 Total Bilirubin (0.2 - 1.3 mg/dL) 1.9 H Direct Bilirubin (< 0.4 mg/dL) 0.3 AST (17 - 59 U/L) 28 ALT (21 - 72 U/L) 87 H Alkaline Phosphatase (< 127 U/L) 44 Total Protein (6.3 - 8.2 g/dL) 6.3 Albumin (3.5 - 5.0 g/dL) 3.4 L Coagulation PT Cancelled INR Cancelled APTT Cancelled Hematology CBC w Diff NO MAN DIFF REQ WBC (4.8 - 10.8 /CUMM) 10.6 RBC (4.70 - 6.10 /CUMM) 4.85 Hgb (14.0 - 18.0 G/DL) 14.5 Hct (42 - 52 %) 43.5 MCV (80.0 - 94.0 FL) 89.7 MCH (27.0 - 31.0 PG) 29.9 RDW (11.5 - 14.5 %) 14.0 Plt Count (130 - 400 /CUMM) 191 MPV (7.4 - 10.4 FL) 9.4 Gran % (42.2 - 75.2 %) 73.1 Lymphocytes % (20.5 - 51.1 %) 14.9 L Monocytes % (1.7 - 9.3 %) 10.8 H Eosinophils % (0 - 5 %) 0.9 Basophils % (0.0 - 2.0 %) 0.3 Absolute Granulocytes (1.4 - 6.5 /CUMM) 7.7 H Absolute Lymphocytes (1.2 - 3.4 /CUMM) 1.6 Absolute Monocytes (0.10 - 0.60 /CUMM) 1.1 H Absolute Eosinophils (0.0 - 0.7 /CUMM) 0.1 Absolute Basophils (0.0 - 0.2 /CUMM) 0 PUBS MCHC (33.0 - 37.0 G/DL) 33.3 07/18 1947 Urines Urinalysis LIGHT H Urine Color (YEL,AMB,STR) YEL Urine Clarity (CLEAR) CLEAR Urine pH (5.0 - 8.0) 6.0 Ur Specific [place] (1.001 - 1.035) 1.010 Urine Protein (NEG,<30 MG/DL) NEG Urine Ketones (NEG) NEG Urine Nitrite (NEG) NEG Urine Bilirubin (NEG) NEG Urine Urobilinogen (0.1 - 1.0 EU/dl) 0.2 Ur Leukocyte Esterase (NEG) NEG Ur Microscopic SEDIMENT EXAMINED Urine RBC (0 - 5 /HPF) RARE Urine WBC (0 - 2 /HPF) 1-3 H Ur Epithelial Cells (NONE,FEW) FEW Urine Bacteria (NEG/NONE) FEW H Urine Mucus (FEW,NONE) FEW Urine Hemoglobin (NEG) TRACE-INTACT H Urine Glucose (N MG/DL) NEG 07/18 1943 Chemistry Sodium (137 - 145 mmol/L) 137 Potassium (3.5 - 5.1 mmol/L) 4.0 Chloride (98 - 107 mmol/L) 96 L Carbon Dioxide (22 - 30 mmol/L) 29 Anion Gap (5 - 16) 12 BUN (9 - 20 mg/dL) 16 Creatinine (0.7 - 1.2 mg/dL) 0.9 Estimated GFR (>60 ml/min) > 60 BUN/Creatinine Ratio (7 - 25 %) 17.8 Glucose (65 - 99 mg/dL) 112 H Calcium (8.4 - 10.2 mg/dL) 9.4 Total Bilirubin (0.2 - 1.3 mg/dL) 2.4 H Direct Bilirubin (< 0.4 mg/dL) 0.4 AST (17 - 59 U/L) 43 ALT (21 - 72 U/L) 107 H Alkaline Phosphatase (< 127 U/L) 54 Total Protein (6.3 - 8.2 g/dL) 7.4 Albumin (3.5 - 5.0 g/dL) 4.2 Globulin (1.9 - 4.2 gm/dL) 3.2 Albumin/Globulin Ratio (1.1 - 2.2 %) 1.3 Amylase (30 - 110 U/L) < 30 L Lipase (23 - 300 U/L) 53 Coagulation PT (9.4 - 12.5 SEC) 13.4 H INR (0.90 - 1.17) 1.28 H APTT (25 - 37 SEC) 29 Hematology CBC w Diff MAN DIFF ORDERED WBC (4.8 - 10.8 /CUMM) 16.2 H RBC (4.70 - 6.10 /CUMM) 5.26 Hgb (14.0 - 18.0 G/DL) 15.6 Hct (42 - 52 %) 46.6 MCV (80.0 - 94.0 FL) 88.6 MCH (27.0 - 31.0 PG) 29.6 RDW (11.5 - 14.5 %) 14.0 Plt Count (130 - 400 /CUMM) 247 MPV (7.4 - 10.4 FL) 9.0 Gran % (42.2 - 75.2 %) 82.3 H Lymphocytes % (20.5 - 51.1 %) 10.4 L Monocytes % (1.7 - 9.3 %) 6.8 Eosinophils % (0 - 5 %) 0.3 Basophils % (0.0 - 2.0 %) 0.2 Absolute Granulocytes (1.4 - 6.5 /CUMM) 13.3 H Segmented Neutrophils (42.2 - 75.2 %) 82 H Absolute Lymphocytes (1.2 - 3.4 /CUMM) 1.7 Lymphocytes (20.5 - 51.1 %) 12 L Monocytes (1.7 - 9.3 %) 3 Absolute Monocytes (0.10 - 0.60 /CUMM) 1.1 H Eosinophils (0 - 5.0 %) 3 Absolute Eosinophils (0.0 - 0.7 /CUMM) 0 Absolute Basophils (0.0 - 0.2 /CUMM) 0 Platelet Estimate (ADEQUATE) VERIFIED BY SMEAR Normocytic RBCs VERIFIED Normochromic RBCs VERIFIED PUBS MCHC (33.0 - 37.0 G/DL) 33.4 Other Body Source Fld Total RBCs Counted (%) 100 Assessment/Plan Assessment/Plan Postop day 0 status post endoscopic cholecystectomy. -Patient comfortable, pain medication as needed -Clears tonight, advance diet tomorrow -Heparin subcutaneous for DVT prophylaxis starting tomorrow -No antibiotics postop needed -Out of bed ad guille. -DC planning for tomorrow if stable Core Measures/Miscellaneous Venous Thromboembolism VTE Risk Factors: Age > 40, Surgery VTE Contraindications: No Contraindications VTE Diagnosis: No VTE Type: NONE VTE Confirmed by (Test): NONE Beta Elisa Is Beta Elisa a Home Med? No Antibiotics Is Patient on Antibiotics? No
--- NOTE | 2016-07-18 22:46 | NUR ---
RECEIVED PATIENT FROM PACU AT 2100. ALERT AND ORIENTED, LOW GRADE TEMP, VSS ON 2L NC. ABDOMEN SOFT, DRESSINGS CLEAN DRY AND INTACT. IVF INFUSING, ALPS ARE ON. DENIES PAIN. TOLERATING CLEAR LIQUIDS. CALL COLLINS WITHIN REACH
[2016-07-19 06:43] VITALS: BP 151/83
--- NOTE | 2016-07-19 07:24 | PN- General Surgery ---
See Addendum Subjective Subjective: Reports pain improves after morphine. Not yet out of bed. Denies dizziness. No shortness of breath. No chest pains. Tolerating clears. No nausea. Voiding well. Objective Vital Signs and I&Os Vital Signs Date Time Temp Pulse Resp B/P B/P Pulse O2 O2 Flow FiO2 Mean Ox Delivery Rate 07/19 0643 97.6 70 18 151/83 97 Nasal 2.0L Cannula 07/19 0000 Nasal 2.0L Cannula 07/18 2100 99.1 68 18 138/77 96 Room Air 07/18 1429 98.3 61 20 176/72 98 Room Air 07/18 1300 176/72 07/18 1150 64 180/102 07/18 1130 64 180/102 Intake & Output 07/19 0800 07/19 0000 07/18 1600 07/18 0800 07/18 0000 07/17 1600 Intake Total 5596 815 0181 500 Output Total 800 900 650 Balance 250 400 130 -150 Intake, IV 209 815 9663 500 Intake, Oral 250 100 30 0 Output, Urine 800 900 650 Patient 291 lb 291 lb Weight Physical Exam: General - alert & oriented x 3. comfortable. no acute distress. Lungs - clear bilaterally. no w/r/r. Cardiac - s1s2. reg. Abdomen - soft. dressings c/d/i. expected kenrick-incisional tenderness. no drains. Extremities - warm bilaterally. no c/c/e. calves soft and nontender b/l. Assessment/Plan Assessment/Plan This 61 year old male with likely underlying hypertension (hasn't seen doctor in 15 years), presented with acute cholecystitis and transaminitis who is now POD#1 s/p lap analia tolerating clears. d/c iv fluids. advance diet d/c morphine. try percocet and toradol. increase norvasc to 10 mg daily, as per medical note yesterday. outpatient echo recommended. hep sc - dvt ppx oob/ambulation f/u labs likely d/c home today if labs look ok, likely with norvasc for hypertension will check with medical team regarding recommendations for htn prior to discharge today to d/w Core Measures/Miscellaneous Venous Thromboembolism VTE Risk Factors: Age > 40, Surgery VTE Contraindications: No Contraindications VTE Diagnosis: No VTE Type: NONE VTE Confirmed by (Test): NONE Beta Elisa Is Beta Elisa a Home Med? No Antibiotics Is Patient on Antibiotics? No
--- NOTE | 2016-07-19 07:32 | Patient Discharge Instructions ---
Discharge Instructions General Discharge Information You were seen/treated for: acute cholecystitis hypertension You had these procedures: laparoscopic cholecystectomy (07/18/16) Watch for these problems: fever>101.3, increased pain, redness/swelling/drainage No bath, but you may shower: Yes Other wound care: you may removed bandaids. leave white steri strips in place. you may shower. keep incisions clean & dry. Special Instructions: make an appointment to see a primary care provider for your blood pressure. you should also have an echocardiogram as an outpatient, with a PCP provider can assist with arranging. Diet Continue normal diet: No Recommended Diet: Heart Healthy, Low Fat Activity Full Activity/No Limits: No Activity Self Limited: Yes Pounds, do NOT lift more than: 10 Other activity limits: no heavy lifting. no strenuous activity. Acute Coronary Syndrome Inclusion Criteria At DC or during hospital stay patient has or had the following: ACS DIAGNOSIS No Discharge Core Measures Meds if any: Prescribed or Continued at Discharge Meds if any: NOT Prescribed or Continued at Discharge Congestive Heart Failure Inclusion Criteria At DC or during hospital stay patient has or had the following: CHF DIAGNOSIS No Discharge Core Measures Meds if any: Prescribed or Continued at Discharge Meds if any: NOT Prescribed or Continued at Discharge Cerebrovascular accident Inclusion Criteria At DC or during hospital stay patient has or had the following: CVA/TIA Diagnosis No Discharge Core Measures Meds if any: Prescribed or Continued at Discharge Meds if any: NOT Prescribed or Continued at Discharge Venous thromboembolism Inclusion Criteria VTE Diagnosis No VTE Type NONE VTE Confirmed by (Test) NONE Discharge Core Measures - Per Current guidelines, there needs to be overlap - treatment for the first 5 days of Warfarin therapy. - If discharged on Warfarin prior to 5 days of - overlap therapy, the patient will need to be - assessed for post discharge needs including - *Post discharge parental anticoagulation - *Warfarin and/or parental anticoagulation education - *Follow up date to check INR post discharge At least 5 days overlap therapy as Inpatient No Meds if any: Prescribed or Continued at Discharge Note: Overlap Therapy is Warfarin and Anticoagulant Meds if any: NOT Prescribed or Continued at Discharge
[2016-07-19] MEDS ORDERED: PERCOCET 5-3251 EACH PO (07:34)
[2016-07-19] MEDS ORDERED: TYLENOL325 M1 PO (07:34)
[2016-07-19] MEDS ORDERED: COLACE100 M1 PO (07:34)
[2016-07-19] MEDS ORDERED: NORVASC10 M1 PO (07:34)
[2016-07-19 08:08] LABS: ABSOLUTE BASOPHIL COUNT 0 /CUMM (0.0-0.2); ABSOLUTE EOSINOPHIL COUNT 0 /CUMM (0.0-0.7); ABSOLUTE GRANULOCYTE CT 10.1 /CUMM (1.4-6.5); ABSOLUTE LYMPH COUNT 0.8 /CUMM (1.2-3.4); ABSOLUTE MONOCYTE COUNT 0.8 /CUMM (0.10-0.60); BASOPHIL % 0.1 % (0.0-2.0); EOSINOPHIL % 0 % (0-5); HEMATOCRIT 47.1 % (42-52); MEAN CORPUSCULAR HGB CONC 33.3 G/DL (33.0-37.0); MEAN PLATELET VOLUME 9.6 FL (7.4-10.4); PLATELET COUNT 177 /CUMM (130-400); RBC DISTRIBUTION WIDTH 14.1 % (11.5-14.5); RED BLOOD CELL CT 5.23 /CUMM (4.70-6.10); WHITE BLOOD CELL COUNT 11.7 /CUMM (4.8-10.8)
[2016-07-19 09:16] VITALS: BP 144/69
[2016-07-19 09:27] LABS: GRANULOCYTE % 86.2 % (42.2-75.2)
--- NOTE | 2016-07-19 09:49 | PN- Medicine Consult ---
DARRIN OLIVER,ADALID 07/19/16 0940: Assessment/Plan Assessment/Plan Assessment: 61 YO M w/o any significant past medical history, not on any home medications. Presented to [facility] after having a large dinner buffet at a friend's birthday alliance party in [place]. He developed abdominal pain along with nausea and vomiting. He had acute cholecystitis and had laproscopic cholecystectomy performed yesterday. Reports feeling better with BP well controlled on Norvasc HTN Continue norvasc 10mg daily. Recommend outpatient echocardiogram. He will need a PCP to f/u with as outpatient. May discharge from medical standpoint. s/p laproscopic cholecystectomy tolerating clears, advance diet as recommended by surgery Plan: see above Problem List: 1. Hypertension 2. Cholecystitis Subjective Subjective: Reports feeling well this morning. Abdominal pain has subsided. BP well controlled. Review of Systems Constitutional: Reports: see HPI. Objective Last 24 Hrs of Vital Signs/I&O Vital Signs Date Time Temp Pulse Resp B/P B/P Pulse O2 O2 Flow FiO2 Mean Ox Delivery Rate 07/19 0916 68 144/69 07/19 0643 97.6 70 18 151/83 97 Nasal 2.0L Cannula 07/19 0000 Nasal 2.0L Cannula 07/18 2100 99.1 68 18 138/77 96 Room Air 07/18 1429 98.3 61 20 176/72 98 Room Air 07/18 1300 176/72 07/18 1150 64 180/102 07/18 1130 64 180/102 Intake & Output 07/19 1600 07/19 0800 07/19 0000 Intake Total 1050 400 Output Total 800 Balance 250 400 Intake, IV 800 300 Intake, Oral 250 100 Output, Urine 800 Physical Exam General Appearance: well developed/nourished, no apparent distress, alert, awake , obese Head: atraumatic, normal appearance Neck: normal inspection, supple Cardiovascular: regular rate/rhythm Respiratory: normal breath sounds, lungs clear Peripheral Pulses: 2+ radial (R) Abdomen: normal bowel sounds, soft, mild tenderness- lap analia performed last night Extremities: no edema Current Medications: Current Medications Sig/Kushal Start time Last Medication Dose Route Stop Time Status Admin Acetaminophen 650 MG Q6P PRN 07/18 1700 AC PO Acetaminophen 650 MG Q6P PRN 07/17 2345 DC PO Amlodipine Besylate 5 MG DAILY 07/19 1000 DC PO Amlodipine Besylate 10 MG DAILY 07/19 1000 AC 07/19 PO 0916 Amlodipine Besylate 5 MG ONCE ONE 07/18 1145 DC 07/18 PO 07/18 1146 1150 Amlodipine Besylate 5 MG DAILY 07/18 0300 DC 07/18 PO 0337 Ampicillin Sodium/ 1,500 MG Q6 07/17 2359 DC 07/18 Sulbactam Sodium IV 1153 Sodium Chloride 100 ML Dextrose/Sodium 1,000 ML CONTINOUS INFUSION 07/18 1700 DC Chloride IV Dextrose/Sodium 1,000 ML .Q8H 07/17 2345 DC 07/18 Chloride IV 0857 Fentanyl Citrate 250 MCG .STK-MED ONE 07/18 1725 DC IM 07/18 1726 Heparin Sodium 5,000 UNIT Q8 07/19 0600 AC 07/19 (Porcine) SC 0546 Heparin Sodium 5,000 UNIT Q8 07/18 0600 DC 07/18 (Porcine) SC 0602 Hydromorphone HCl 2 MG .STK-MED ONE 07/19 2007 DC IM 07/18 2009 Hydromorphone HCl 2 MG .STK-MED ONE 07/18 1955 DC IM 07/18 1956 Hydromorphone HCl 2 MG .STK-MED ONE 07/18 1725 DC IM 07/18 1726 Ketorolac 30 MG Q6 07/19 0721 AC 07/19 Tromethamine IV 0802 Meperidine HCl 50 MG .STK-MED ONE 07/18 1954 DC IM 07/18 1955 Midazolam HCl 2 MG .STK-MED ONE 07/18 1726 DC IM 07/18 1727 Morphine Sulfate 2 MG Q4P PRN 07/18 1700 DC 07/19 IV 0546 Morphine Sulfate 4 MG Q4P PRN 07/18 1700 DC IV Morphine Sulfate 2 MG Q4P PRN 07/17 2345 DC IV Morphine Sulfate 4 MG Q4P PRN 07/17 2345 DC IV Ondansetron HCl 4 MG Q8P PRN 07/18 1700 AC IV Ondansetron HCl 4 MG Q8P PRN 07/17 2345 DC IV Oxycodone/ 1 TAB Q4-6 PRN PRN 07/19 0730 AC Acetaminophen PO Oxycodone/ 2 TAB Q4-6 PRN PRN 07/19 0730 AC Acetaminophen PO Results Last 24 Hrs Lab/Sudheer Results: Laboratory Tests 07/19/16 0620: Anion Gap 11, Estimated GFR > 60, BUN/Creatinine Ratio 17.1, Total Bilirubin 1.4 H, Direct Bilirubin 0.3, AST 35, ALT 81 H, Alkaline Phosphatase 43, Total Protein 6.4, Albumin 3.4 L, CBC w Diff NO MAN DIFF REQ, RBC 5.23, MCV 90.0, MCH 30.0, RDW 14.1, MPV 9.6, Gran % 86.2 H, Lymphocytes % 7.2 L, Monocytes % 6.5, Eosinophils % 0, Basophils % 0.1, Absolute Granulocytes 10.1 H, Absolute Lymphocytes 0.8 L, Absolute Monocytes 0.8 H, Absolute Eosinophils 0, Absolute Basophils 0, PUBS MCHC 33.3 SANDRA OLIVER,[facility] 07/19/16 1240: Attending MD Review Statement Attending Sign Off Attending Cosign Statement: I have: examined this patient, reviewed [facility] EMR data, personally reviewd images, discussd w/resident/PA/ADMINISTRATIVE ASSISTANT, discussed mgmt plan w/pt, agreed w/resident/ PA/ADMINISTRATIVE ASSISTANT, amended to note. Other Findings: Patient seen and examined, feels well. Status post laparoscopy cholecystectomy postop day #1 today. Patient has been started on diet and currently denies any abdominal pain, nausea or vomiting. Blood pressure seems to be better controlled with Norvasc. I would recommend continuing the patient on current dose of Norvasc. He should establish his care with a primary care doctor as an outpatient. Patient will follow per Dr. Bush as an outpatient. From medicine standpoint patient is stable for discharge.
== END 2016-07-19 13:47 | disposition home health service (06) ==
LOC: ENRESERVDT → ENRESERVTM → ERH 19:18 → 2NB 07-18 00:06 → ERHI 07-18 00:06 → 2NB 07-18 02:21 → ENPENDDIS 07-19 10:16 → 2NB 07-19 13:47
PROVIDERS: Emergency Medicine; Physician Assistant Surgical; ADMIT Surgery
DX: K80.12 Calculus of gallbladder with acute and chronic cholecystitis without obstruction (principal); E66.01 Morbid (severe) obesity due to excess calories
CPT/HCPCS: 36415; 81001; 82436; 88304; 93005; 93010; 96365; 96372; 96374; 96375; C9399; G0378; J1644; J1885; J2405